=== PATIENT | male | born 1950 | race Caucasian/White ===

== ENCOUNTER 2020-07-19 16:25 | Emergency (ER) | payer OTHER, MEDICAID ==
[~2020-07-19] VITALS: Ht 172.7 cm; Wt 79.4 kg
[2020-07-19 16:53] VITALS: BP 134/85
--- NOTE | 2020-07-19 17:07 | NUR ---
Patient ambulated to bed 2. RN evaluating the patient at bedside.
--- NOTE | 2020-07-19 17:33 | NUR ---
69 y/o M brought in from home with c/c dizziness x 4 days. Patient A&Ox4, ambulatory, states dizziness has been tatiana tom for 4 days, worsens with head movement. Pt states it feels like the room is spinning. Patient denies any N/V/D, headache, chest pain, blurry vision, SOB, abdominal pain. 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 Bed locked in lowest position, side rails x 1, call light in reach. PMH: DM, HLD Meds: Unable to obtain NKA Sx: Denies
--- NOTE | 2020-07-19 17:33 | NUR ---
Dr. Borges is evaluating patient at bedside.
--- NOTE | 2020-07-19 17:48 | NUR ---
EMT at bedside for EKG.
--- NOTE | 2020-07-19 17:59 | NUR ---
Lab at bedside.
--- NOTE | 2020-07-19 18:05 | NUR ---
Patient transported to CT via wheelchair.
[2020-07-19 18:17] LABS: BASOPHILS % (AUTO) 0.2 % (0.0-2.0); EOSINOPHILS # (AUTO) 0.2 K/uL (0-0.4); HEMATOCRIT 43.4 % (36-52); HEMOGLOBIN 14.8 g/dL (12.0-18.0); LYMPHOCYTES # (AUTO) 1.4 K/uL (2.0-11.5); LYMPHOCYTES % (AUTO) 25.3 % (20.5-51.1); MEAN CORPUSCULAR HEMOGLOBIN 33 pg (27-31); MEAN CORPUSCULAR HGB CONC 34 g/dL (33-37); MEAN CORPUSCULAR VOLUME 95.5 fL (80-94); MONOCYTES # (AUTO) 0.7 K/uL (0.8-1.0); MONOCYTES % (AUTO) 11.7 % (1.7-9.3); NEUTROPHILS # (AUTO) 3.3 K/uL (1.8-7.7); NEUTROPHILS % (AUTO) 59.8 % (42.2-75.2); PLATELET COUNT (AUTO) 170 K/uL (140-450); RED BLOOD CELL COUNT(AUTO) 4.54 MIL/uL (4.20-6.10); WHITE BLOOD COUNT (AUTO) 5.6 K/uL (4.8-10.8)
--- NOTE | 2020-07-19 18:18 | NUR ---
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 Bed locked in lowest position, side rails x 1, call light in reach.
[2020-07-19 19:03] LABS: ALBUMIN 3.9 g/dL (3.4-5.0); ANION GAP 11.4 (8-16); CARBON DIOXIDE 25.1 mmol/L (21-32); CREATININE 0.7 mg/dL (0.6-1.3); POTASSIUM 3.5 mmol/L (3.5-5.1); TOTAL BILIRUBIN 0.8 mg/dL (0.0-1.0)
--- NOTE | 2020-07-19 19:13 | NUR ---
RECEIVED REPORT FROM JESSENIA WHITAKER FOR CONTINUITY OF CARE.
--- NOTE | 2020-07-19 19:13 | NUR ---
Report and transfer of care given to SHERMAN Lancaster.
--- NOTE | 2020-07-19 19:16 | NUR ---
Gaston romero in [facility] - 07/19/20 at 1916 by SUE Report and transfer of care given to SHERMAN Lancaster.
[2020-07-19] MEDS ORDERED: MECL-303 PO (19:26)
[2020-07-19 19:39] VITALS: BP 140/89
--- NOTE | 2020-07-19 19:39 | NUR ---
Patient discharged with v/s stable. Written and verbal after care instructions given and explained. Patient alert, oriented and verbalized understanding of instructions. Ambulatory with steady gait. All questions addressed prior to discharge. ID band removed. Patient advised to follow up with PMD. Rx of ANTIVERT given. Patient educated on indication of medication including possible reaction and side effects. Opportunity to ask questions provided and answered.
== END 2020-07-19 19:39 | disposition home or self-care (01) ==
LOC: MED 16:25
DX: R42 Dizziness and giddiness (principal); J45.909 Unspecified asthma, uncomplicated; E11.9 Type 2 diabetes mellitus without complications; Z79.899 Other long term (current) drug therapy
CPT/HCPCS: 36415; 80053; 84484; 85025; 93005; 99285